=== PATIENT | female | born 1935 | race Caucasian/White ===

== ENCOUNTER 2016-11-14 06:36 | Day surgery (SDC) | payer OTHER ==
[2016-11-13 13:45] VITALS: BMI 32.1
[2016-11-14] MEDS ORDERED: MIDAZOLAM HCL 2 MG/2 ML SINGLE DOSE VIAL ONE (08:02)
[2016-11-14] MEDS ORDERED: PROPOFOL 20 ML ONE (08:02)
[2016-11-14] MEDS ORDERED: ONDANSETRON 4 MG/2 ML VIAL ONE (08:02)
[2016-11-14] MEDS ORDERED: LIDOCAINE HCL/PF 2% SDV 5ML VIAL ONE (08:02)
--- NOTE | 2016-11-14 08:32 | HP ---
History & Physical Update - Physical Physical: No Change - Assessment Assessment: No Change - Plan Plan: No Change
[2016-11-14] MEDS ORDERED: ceFAZolin SODIUM 1 GM VIAL ONE (08:38)
[2016-11-14] MEDS ORDERED: ceFAZolin SODIUM 1 GM VIAL IVPB ONE (08:41)
[2016-11-14] MEDS ORDERED: LIDOCAINE 1%/EPI 1:100000 (50 ML MULTI DOSE VIAL) ONE (08:44)
[2016-11-14] MEDS ORDERED: LIDOCAINE 1%/EPI 1:100000 (50 ML MULTI DOSE VIAL) INF ONE (08:45)
[2016-11-14] MEDS ORDERED: ONDANSETRON 4 MG/2 ML VIAL IVPUSH PRN (09:09)
[2016-11-14] MEDS ORDERED: oxyCODONE HCL 5 MG TABLET PO PRN (09:09)
[2016-11-14] MEDS ORDERED: LACTATED RINGERS SOLUTION 1,000 ML IV SCH (09:15)
--- NOTE | 2016-11-14 09:29 | OP ---
Operative Note - Note: Operative Date: 11/14/16 Pre-Operative Diagnosis: PMVB Operation: Dilatation and Curettage, Hysteroscopy Post-Operative Diagnosis: Same as Pre-op Surgeon: Radha Urena Anesthesia: Local, MAC Specimens Removed: Endocervical curettage, endometrial curettage Estimated Blood Loss (mls): 10
[2016-11-14 10:33] VITALS: TEMP 97.8
[2016-11-14 11:56] VITALS: BP 104/55; PULSE 54
--- NOTE | 2016-11-14 15:32 | OP ---
DATE OF OPERATION: 11/14/2016 PREOPERATIVE DIAGNOSIS: Postmenopausal vaginal bleeding. POSTOPERATIVE DIAGNOSES: Postmenopausal vaginal bleeding and endometrial polyp. PROCEDURE: Dilatation and curettage, hysteroscopy. SURGEON: Radha Urena MD ANESTHESIA: MAC and local. ESTIMATED BLOOD LOSS: 10 mL. COMPLICATIONS: None. SPECIMENS: Endocervical curettage and endometrial curettage. INDICATIONS: This is an 80-year-old 3, para 3 with history of postmenopausal vaginal bleeding. She reported it had just been light spotting for approximately 5 years and infrequently, just once per year. She never had had a history of biopsy. Patient was found to have an elevated CEA and was having an extensive workup for this including a PET CT scan. CEA on September 06, [address] scan September 12, 2016 showed focal uptake at the anal verge and over the right adnexa consistent with artifact due to overlying bowel. September 25, 2016 pelvic ultrasound showed a normal uterus. Endometrial stripe was 4 mm. Right ovary normal. Left ovary not seen. The patient was counseled regarding surgical management. Risks, benefits, indications, alternatives were discussed with the patient. All questions were answered. Informed consent was signed. FINDINGS: Cervix: No lesions. The os was mildly stenotic. The vagina was atrophic. The vulva: No lesions. Uterus approximately 6 weeks size. Upon hysteroscopy, endocervical canal appeared normal. The endometrial cavity appeared atrophic. Bilateral ostia of the fallopian tubes were seen, and there was an approximately 1-cm atrophic-appearing polypoid lesion arising from the right fundus. The rest of the cavity appeared clean. DESCRIPTION OF PROCEDURE: Patient was taken to the operating room, placed in the dorsal supine position. MAC anesthesia was obtained without difficulty, and an LMA was placed. Patient was placed in the dorsal lithotomy position in Erasto stirrups and prepped and draped in the normal sterile fashion. A speculum was placed in the vagina. Next, 8 mL of 1% lidocaine with epinephrine was injected into the cervix at 4 and 7 o'clock for a paracervical block and at 12 o'clock. The cervix was grasped at 12 o'clock with the single-tooth tenaculum. The cervix was gently dilated, and the diagnostic hysteroscope was gently advanced through the cavity with the above-noted findings while instilling normal saline. The hysteroscope was removed. Please note endocervical curettage had been performed prior to the hysteroscopy, and endometrial curettings were also obtained with care taken to remove the polypoid lesion in the right fundus. At the end of the procedure, the hysteroscope was advanced, and cavity appeared clean. All instruments were removed from the patient's abdomen. Sponge and instrument counts were correct x2. The patient was awakened and transferred in stable condition to the PACU. Kallie [id number]
--- NOTE | 2016-11-15 12:06 | PATH ---
Surgical Pathology Report Patient Name: MOSES IRBY Med. Rec. #: [id number] /Age/Gender: 1935 (Age: 80) / F Account: [id number] Location: [facility] Taken: 11/14/2016 Received: 11/14/2016 Reported: 11/15/2016 Physicians: Radha Urena MD Specimen(s) Received A: ENDOCERVICAL CURETTINGS B: ENDOMETRIAL CURETTINGS Clinical History Postmenopausal bleeding Polyp Final Diagnosis A. ENDOMETRIUM, CURETTAGE: SCANT FRAGMENTS OF BENIGN ENDOCERVICAL TISSUE. FRAGMENTS OF BENIGN SQUAMOUS EPITHELIUM. B. ENDOMETRIUM, CURETTAGE: FRAGMENTS OF ENDOMETRIAL POLYP. SCANT FRAGMENTS OF BACKGROUND ATROPHIC ENDOMETRIUM. FRAGMENTS OF BENIGN SMOOTH MUSCLE. FRAGMENTS OF BENIGN ENDOCERVICAL TISSUE AND BENIGN SQUAMOUS EPITHELIUM. Electronically Signed Morgan Abrams M.D. Gross Description A. Received in formalin labeled "endocervical curettings" is a 1.3 x 0.1 x 0.3 cm aggregate of blood-tinged mucus, possibly containing soft tissue fragments. The formalin is filtered and the specimen is entirely submitted in one cassette. B. Received in formalin labeled "endometrial curettings" is a 1.1 x 0.8 x 0.2 cm aggregate of morel soft tissue fragments admixed with blood-tinged mucous. The formalin is filtered and the specimen is entirely submitted in one cassette. 11/14/201611/14/2016
== END 2016-11-14 12:07 | disposition home or self-care (01) ==
LOC: JASU-SURG 06:36
PROVIDERS: ATTEND Obstetrics & Gynecology Gynecologic Oncology
PROC: 0UDB8ZX Extraction of Endometrium, Via Natural or Artificial Opening Endoscopic, Diagnostic (ICD-10-PCS; principal; 2016-11-14 08:00)
DX: N95.0 Postmenopausal bleeding (principal); N84.0 Polyp of corpus uteri
CPT/HCPCS: 86850; 86900; 86901; 88305-TC; 94760